=== PATIENT | male | born 1970 | race African-American/Black ===

== ENCOUNTER → 2018-08-12 | Outpatient (CLI) | payer OTHER ==
--- NOTE | 2018-08-14 09:15 | 24HR ---
[facility] [place] [address] 24 HR ELECTROCARDIOGRAM REPORT Name: CHARITY ORTEZ Room #: REG CL [facility]#: [id number] ������������� Admission: 08/12/18 ������������� Attend Phys: Deep Reyes MD Discharge: ��� ������������� ��� Date of : 66 Date of Service: 08/12/18 1126 �� Report #: [id number] �������� ��������������������������������������������[id number] THIS REPORT FOR: //name// [facility] Test Date: 2018-08-12 Test Time: 11:26:00 Pat Name: CHARITY ORTEZ Department: Room: Gender: [employer]: : 1970 Requested By: Deep Reyes Order Number: [id number] Boo MD: Bo Guallpa Interpretive Statements 1. The study duration was 24 hours and the technical quality was good. Predominant rhythm sinus rhythm at an average heart rate is 72 bpm, range 55-121 bpm. Longest RR interval 1.2 seconds. 2. Occasional isolated atrial premature complexes. No heart block. No atrial fibrillation or atrial flutter. No episodes of paroxysmal supraventricular tachycardia. 3. Patient will, isolated premature ventricular complexes. No episodes of ventricular tachycardia. PVC burden <1% 4. No symptoms reported. Electronically Signed On 08-14-2018 9:15:06 CDT by Bo Guallpa [email or web address] ��������������������������������������������� <ELECTRONICALLY SIGNED> ���������������������������������������� By: Bo Guallpa MD, [facility] ��������������������������������������������� 08/14/18 0915 1126 1126 Bo Guallpa MD, [facility] /EPI
== END ==
LOC: CV 10:39
DX: R00.2 Palpitations (principal)